=== PATIENT | female | born 1965 | race Caucasian/White ===

== ENCOUNTER 2017-09-02 11:49 | Emergency (ER) | payer SELFPAY ==
[~2017-09-02] VITALS: Ht 152.4 cm; Wt 75.0 kg
[2017-09-02 13:00] LABS: BASOPHILS # (AUTO) 0.02 x10^3/uL (0-0.1); BASOPHILS % (AUTO) 0 % (0-1); EOSINOPHILS # (AUTO) 0.08 x10^3/uL (0-0.4); EOSINOPHILS % (AUTO) 1 % (1-7); LYMPHOCYTES # (AUTO) 1.77 x10^3/uL (1-3.4); LYMPHOCYTES % (AUTO) 24 % (22-44); MD NO; MEAN CORPUSCULAR HEMOGLOBIN 29.5 pg (27.0-34.8); MEAN CORPUSCULAR VOLUME 89.3 fL (80-100); MEAN PLATELET VOLUME 9.7 fL (7.4-10.4); MONOCYTES # (AUTO) 0.46 x10^3/uL (0.2-0.8); MONOCYTES % (AUTO) 6 % (2-9); NEUTROPHILS # (AUTO) 5.07 x10^3/uL (1.8-6.8); NEUTROPHILS % (AUTO) 69 % (42-75); PLATELET COUNT 231 x10^3/uL (130-400); RED BLOOD COUNT 4.38 x10^6/uL (3.82-5.3); RED CELL DISTRIBUTION WIDTH 13.7 % (9.6-15.2)
[2017-09-02 13:08] LABS: ALBUMIN 3.9 g/dL (3.4-5.0); ANION GAP 4 mmol/L (5-15); CALCIUM 8.7 mg/dL (8.5-10.1); CHLORIDE 109 mmol/L (98-107); CREATININE 0.66 mg/dL (0.55-1.02)
[2017-09-02] MEDS ORDERED: SUMATRIPTAN 25 MG TABLET PO STA (13:46)
[2017-09-02] MEDS ORDERED: SUMATRIPTAN 25 MG TABLET ONE (13:53)
[2017-09-02] MEDS ORDERED: KETOROLAC 30 MG/1 ML ONE (13:53)
[2017-09-02] MEDS ORDERED: ONDANSETRON ODT 8 MG ONE (13:53)
[2017-09-02] MEDS ORDERED: KETOROLAC 30 MG/1 ML IM ONE (14:00)
[2017-09-02] MEDS ORDERED: ONDANSETRON ODT 8 MG PO ONE (14:00)
[2017-09-02 14:55] VITALS: BP 131/81
== END 2017-09-02 14:57 | disposition home or self-care (01) ==
LOC: ED 13:06
DX: N93.8 Other specified abnormal uterine and vaginal bleeding (principal); N92.0 Excessive and frequent menstruation with regular cycle; G43.909 Migraine, unspecified, not intractable, without status migrainosus
CPT/HCPCS: 36415; 80048; 82040; 84703; 85025; 96372; 99284; J1885; Q0162